=== PATIENT | male | born 1965 | race Two or more races ===

== ENCOUNTER 2020-03-10 07:05 | Inpatient (IN) | payer OTHER ==
[2020-03-10] VITALS (13 sets, daily range): BP systolic 113–154; BP diastolic 67–98
[~2020-03-10] VITALS: Ht 167.6 cm; Wt 111.6 kg
[~2020-03-10 07:05] MED LIST: ceFAZolin 1gm IVPB IVPB ONE; celeBREX 200mg Cap **SURGERY PATIENTS ONLY ORAL ONE; oxyCONTIN 20mg tab ORAL ONE
--- NOTE | 2020-03-10 07:41 | Pre-Procedure Note/Attestation ---
Pre-Procedure Note/Attestation Complete Prior to Procedure Planned Procedure: right Procedure Narrative: knee tka Indications for Procedure Pre-Operative Diagnosis: right knee arthritis Attestation I attest that I discussed the nature of the procedure; its benefits; risks and complications; and alternatives (and the risks and benefits of such alternatives), prior to the procedure, with the patient (or the patient's legal entry level marketing representative). I attest that, if there was a reasonable possibility of needing a blood rob sfusion, the patient (or the patient's legal entry level marketing representative) was given the [facility] standardized written summary, pursuant to the Estuardo Gloria Blood Safety Act ([place] Health and Safety Code # 1645, as amended). I attest that I re-evaluated the patient just prior to the surgery and that there has been no change in the patient's H&P, except as documented below: Simeon Ritter MD Mar 10, 2020 07:41
--- NOTE | 2020-03-10 07:42 | Operative Note - PDOC ---
Operative Note Operative Note Pre-op Diagnosis: right knee arthritis Procedure: see op report Post-op Diagnosis: same as pre-op plus Anesthesia: regional Specimen: none Complications: none Condition: stable Estimated Blood Loss: none Drains: none Implant(s) used?: Yes Simeon Ritter MD Mar 10, 2020 07:42
[2020-03-10] MEDS ORDERED: Morphine Sulfate 4mg/ml Inj (IV USE ONLY) IVP PRN (07:45)
[2020-03-10] MEDS ORDERED: Morphine Sulfate 2mg/ml Inj(IV/IM USE ONLY) IVP PRN ×2 (07:45)
[2020-03-10] MEDS ORDERED: oxyCODONE 5mg IR tab ORAL PRN (07:45)
[2020-03-10] MEDS ORDERED: Milk of Magnesia 30ml Ud ORAL PRN (07:45)
[2020-03-10] MEDS ORDERED: Ketorolac 30mg Inj ONE (08:32)
[2020-03-10] MEDS ORDERED: EPINEPHrine 1mg/1ml Amp ONE ×2 (08:32→08:53)
[2020-03-10] MEDS ORDERED: Kenalog-40 1ml Vial ONE (08:32)
[2020-03-10] MEDS ORDERED: Bacitracin 50000 Units Vial ONE (08:33)
[2020-03-10] MEDS ORDERED: Bupivacaine 0.25% Inj 30ml INJ ONE ×2 (08:33→10:56)
[2020-03-10] MEDS ORDERED: Acetaminophen (Non formulary) 100 ML IV ONE (08:45)
[2020-03-10] MEDS ORDERED: Midazolam 2mg/2ml Inj IVP PRN (08:45)
[2020-03-10] MEDS ORDERED: DiphenhydrAMINE 50mg/ml Inj IVP PRN (08:45)
[2020-03-10] MEDS ORDERED: LORazepam Inj 2mg/ml 1ml IV PRN (08:45)
[2020-03-10] MEDS ORDERED: Labetalol 5mg/ml 20ml vial IV PRN (08:45)
[2020-03-10] MEDS ORDERED: Hydromorphone 0.5mg/0.5ml inj IVP PRN (08:45)
[2020-03-10] MEDS ORDERED: Metoclopramide 10mg/2ml Inj IVP PRN (08:45)
[2020-03-10] MEDS ORDERED: Meperidine 25mg/1ml Inj (FOR RIGORS ONLY) IV PRN (08:45)
[2020-03-10] MEDS ORDERED: LR 1000ml 1,000 ML IVLG SCH (08:45)
[2020-03-10] MEDS ORDERED: HYDROcodone/Acetamin 7.5/325 tab ORAL PRN (08:45)
[2020-03-10] MEDS ORDERED: Atropine Sulfate 0.4mg/ml inj IVP PRN (08:45)
[2020-03-10] MEDS ORDERED: oxyCODONE HCL/Acetaminophen 5/325mg ORAL PRN (08:45)
[2020-03-10] MEDS ORDERED: fentaNYL 100 mcg/2 mL IV PRN (08:45)
[2020-03-10] MEDS ORDERED: HYDROcodone/Acetamin 5/325 tab ORAL PRN (08:45)
[2020-03-10] MEDS ORDERED: Lidocaine 1% Plain 30 ml INJ ONE ×2 (08:52→10:49)
[2020-03-10] MEDS ORDERED: Lidocaine 1% MPF 10mg/ml 5ml ONE (08:52)
--- NOTE | 2020-03-10 08:52 | Anethesia Preoperative Eval ---
Anesthesia Pre-op PMH/ROS General Date of Evaluation: Mar 10, 2020 Time of Evaluation: 08:47 Anesthesiologist: Lizzy ASA Score: ASA 3 Mallampati Score Class I : Soft palate, uvula, fauces, pillars visible Class II: Soft palate, uvula, fauces visible Class III: Soft palate, base of uvula visible Class IV: Only hard plate visible Mallampati Classification: Class II Surgeon: Stone Diagnosis: R Knee Pain Surgical Procedure: R Knee Total Arthroplasty Anesthesia History: none Family History: no anesthesia problems Allergies: Coded Allergies: No Known Allergies (Unverified , 03/08/20) Medications: see eMAR Patient NPO?: Yes Past Medical History Cardiovascular: Reports: HTN Gastrointestinal/Genitourinary: Reports: GERD Neurologic/Psychiatric: Reports: depression/anxiety Musculoskeletal/Integumentary: Reports: OA Other: obesity - Morbid BMI 41 Anesthesia Pre-op Phys. Exam Physician Exam Last Vital Signs Date Time Temp Pulse Resp B/P (MAP) Pulse Ox O2 Delivery O2 Flow Rate FiO2 03/10/20 07:46 98.4 50 18 148/85 (106) 100 Constitutional: NAD Neurologic: CN 2-12 intact Cardiovascular: RRR Respiratory: CTA Gastrointestinal: S/NT/ND Airway Exam Mallampati Score: Class II MO: full ROM: limited Teeth: missing, intact Anesthesia Pre-op A/P Risk Assessment & Plan Assessment: ASA 3 Plan: GA, Adductor Block Status Change Before Surgery: No Pre-Antibiotics Dru Grams Ancef IV Given Within 1 Hr of Incision: Yes Time Given: 09:21 Tristan Ball MD Mar 10, 2020 08:52
[2020-03-10] MEDS ORDERED: fentaNYL 100 mcg/2 mL IV ONE ×2 (08:53→10:15)
[2020-03-10] MEDS ORDERED: Ropivacaine 5mg/ml Vial 20ml INJ ONE (08:53)
[2020-03-10] MEDS ORDERED: Duramorph PF 5mg/10ml amp ONE (08:54)
--- NOTE | 2020-03-10 09:39 | Immediate Post-Op Evaluation ---
Immediate Post-Op Evalulation Immediate Post-Op Evalulation Procedure: R Knee Total Arthroplasty Date of Evaluation: Mar 10, 2020 Time of Evaluation: 12:05 IV Fluids: 1200 LR Blood Products: 0 Estimated Blood Loss: 75 Urinary Output: 275 Blood Pressure Systolic: 154 Blood Pressure Diastolic: 97 Pulse Rate: 89 Respiratory Rate: 16 O2 Sat by Pulse Oximetry: 100 Temperature (Fahrenheit): 99 Pain Score (1-10): 2 Nausea: No Vomiting: No Complications 0 Patient Status: awake, reacts, patent, none Hydration Status: adequate Dru Grams Ancef IV Given Within 1 Hr of Incision: Yes Time Given: 09:21 Tristan Ball MD Mar 10, 2020 09:39
[2020-03-10] MEDS ORDERED: Tranexamic Acid 100 ML IVPB ONE (10:15)
--- NOTE | 2020-03-10 10:56 | NUR ---
CASE MANAGEMENT: INITIAL REVIEW 03/10/2020 55 YO M PRESENTED TO HOSPITAL CC: right knee arthritis PMHx: OA. ANXIETY. SI:right knee arthritis VS: T 98.4 HR 50 RR 18 B/P 148/85 SATS 100% ON RA LABS: NONE TODAY IS:OR MEDS PATIENT ADMITTED TO SURGERY 03/10/2020 @ 0741 DCP: HOME PLAN OF CARE: Procedure: R Knee Total Arthroplasty
[2020-03-10] MEDS ORDERED: Tranexamic Acid 1,000 MG in NS 55 ML IVPB SCH (11:30)
[2020-03-10] MEDS ORDERED: LR 1000ml ONE (12:00)
[2020-03-10] MEDS ORDERED: Succinylcholine 20mg/ml 10ml vial ONE (12:00)
--- NOTE | 2020-03-10 13:35 | 48 Hour Post Anesthesia Eval ---
Post Anesthesia Evaluation Procedure: R Knee Total Arthroplasty Date of Evaluation: Mar 10, 2020 Time of Evaluation: 13:33 Blood Pressure Systolic: 138 0: 82 Pulse Rate: 80 Respiratory Rate: 19 Temperature (Fahrenheit): 98.8 O2 Sat by Pulse Oximetry: 99 Airway: patent Nausea: No Vomiting: No Pain Intensity: 2 Hydration Status: adequate Cardiopulmonary Status: Stable Mental Status/LOC: patient returned to baseline Follow-up Care/Observations: 0 Post-Anesthesia Complications: 0 Follow-up care needed: N/A Tristan Ball MD Mar 10, 2020 13:35
--- NOTE | 2020-03-10 14:10 | NUR ---
NURSE NOTES: Received patient from PACU. Patient is awake and denies pain. He verbalizes how to use the call light. Surgical site is dry and intact. No bleeding noted. SCD on left leg. Vitals are stable. Breathing is unlabored. Patient is on NC 3L. IV 18g on the left hand. Sam catheter noted. Yellow urine drainage noted. Patient is on the bed. Physical therapist is made aware to get patient out of bed. RN boiler house supervisor made aware of villa.
--- NOTE | 2020-03-10 15:23 | NUR ---
P.T Note: P.T evaluation completed and tx initiated POD #0. Pt is alert, O x 4, pleasant and cooperative. Pt has limited participation in functional mobilities due to R knee pain 8/10 with movement, nausea and diaphoresis. Pt currently require MIN A X 1 for bed mobilities , MOD A X 1 for transfers. Pt was only able to ambulate with FWW not more than 6 tiny steps on a slow labored pace due due to above reasons. Will continue with POC with progression of activities as tolerated. Pt will benefit to SNF for further rehab intervention VS home P.T depending on daily progress. CPM was set up and tolerating 0-60 deg. CPM was endorsed to nursing at the end of P.T shift.
[2020-03-10] MEDS: D5 1/2NS w/KCl 20mEq 1,000 ML IV SCH (15:57)
[2020-03-10] MEDS: ceFAZolin 2gm/50ml Premix 50 ML IV SCH (15:58)
--- NOTE | 2020-03-10 17:03 | NUR ---
AGRICULTURAL CHEMICALS INSPECTOR NOTE SW met w/ pt and discussed social sciences professor concern. Pt is monolingual Welsh. senior product designer Gladys #[id number] assisted w/ interpretation. Pt presents as A&O 4x. Pt has been staying at his friend's place at [address] [place] [address]. Pt shares his friend financially supported him until now. Pt has been disabled for three years. Pt receives no income at this time. PT denies having mental illness, substance abuse/tobacco use. Pt reports he will not be able to return his friend's home upon DC. may need placement. SW will continue to F/U. Emergency contact: Elgin Feliciano (nephew) [phone].
[2020-03-10] MEDS: Docusate 100mg cap ORAL SCH (17:58)
[2020-03-10] MEDS: Aspirin Baby 81mg ORAL SCH (17:58)
--- NOTE | 2020-03-10 18:05 | Diagnostic Imaging Report ---
Indications: Postoperative Technique: Two views of the right knee Comparison: None Findings: Two postoperative views of the right knee demonstrate total knee arthroplasty, good anatomic alignment of the prosthesis. . There is postsurgical soft tissue air. Impression: Postoperative right knee, no unusual features.
--- NOTE | 2020-03-10 18:30 | Operative Note - Dictated ---
DATE OF OPERATION: 03/10/2020 PREOPERATIVE DIAGNOSIS: Right knee arthritis, aggravated by fall. POSTOPERATIVE DIAGNOSIS: Right knee arthritis, aggravated by fall. PROCEDURE: Right total knee arthroplasty, complicated. SURGEON: Simeon Ritter MD ANESTHESIA: Spinal with adductor block. INDICATION FOR PROCEDURE: The patient is a pleasant 55-year-old gentleman who had a substantial fall onto his right knee. He had aggravation of underlying arthritis. After failing conservative treatment, he elected to undergo right total knee arthroplasty. Risks, limitations, expectations, and complications of the procedure were discussed in detail. All questions were addressed including instability, infection, nerve or vessel damage, continued pain, risk of anesthesia, medical complications, DVT, PE, and mortality risk. All questions were addressed. DESCRIPTION OF PROCEDURE: After informed consent was obtained, the patient was brought into the operating room. The patient was placed under spinal and femoral adductor. Right leg was prepped and draped in a sterile manner. Time-out was performed. Medial parapatellar arthrotomy was performed. Distal femur was well visualized. The distal femoral cutting guide was then placed and distal femur was resected. A posteroanterior sizing guide was placed and it measured approximately size 5 femur. Size 5 femur cutting block was placed with care to make sure there was perpendicular mechanical axis of the femur. Anterior, posterior, chamfer cuts were then made. At this point, the proximal tibia was well visualized. The proximal tibia was then resected. Medial and lateral menisci were removed. At this point, a trial component with a size 5 femur, size 5 tibial tray with a 9 mm insert was placed. Knee came out to full extension, good stability with full extension on varus and valgus stressing. Mild opening medial and lateral, but no gross instability, no flexion instability, stable at 90 degrees. At this point, the tibia was externally rotatored and keel punch was prepared. Patella was everted and measured 26 mm. Freehand resection was performed. A 33 mm patellar component was selected and recalibrated to 26 mm. At this point, the cement was prepared. Implants were impacted into place and excess cement was removed. The knee was again taken through range of motion, stable to full extension, less than 5 mm opening with flexion, stable at 90 degrees. Given that he had a 15-degree flexion contracture with significant posteromedial bone loss on the medial side, it was felt that this was a reasonable soft-tissue balancing. The synovectomy of the medial, lateral, and patellofemoral compartments was completed. BLOOD LOSS: 25 mL. COMPLICATIONS: None. SPECIMENS: None. IMPLANTS: Include size 5 femoral component, size 5 tibial baseplate, 9 mm tibial insert, and 33 mm patellar component. Simeon Ritter M.D. DR: RITA JOB#: [id number] CC: JEREMIAH
--- NOTE | 2020-03-10 19:23 | NUR ---
NURSE NOTES: received pt and report from ANNEL Davies. pt alert and oriented x 4 with no s/s of acute distress and no pain at the moment. IV is clean dry and intact and running fluid as ordered. Sma noted and draining. surgical dressing clean dry and intact. Plan of care discussed.
--- NOTE | 2020-03-10 19:26 | NUR ---
NURSE HAND-OFF: Important Events on Shift: S-P Right knee arthroplasty Patient Status: [stable] Diet: [Regular] Pending Orders: [N/A] Pending Results/Labs: N/A Pending MD notification: No Latest Vital Signs: Temperature 97.9 , Pulse 62 , B/P 121 /76 , Respiratory Rate 16 , O2 SAT 94 , Room Air, O2 Flow Rate 3.0 . Vital Sign Comment: Stable Latest Draper Fall Score: 35 Fall Risk: Medium Risk Safety Measures: Call light Within Reach, Bed Alarm , Side Rails Side Rails x1, Bed position Low and Locked. Fall Precautions: Patient Fall Education Report given to Ilia UP.
[2020-03-10] MEDS: oxyCONTIN 20mg tab ORAL SCH (21:06)
[2020-03-10] MEDS: Acetaminophen 500mg (ES) tab ORAL SCH (21:07)
[2020-03-11] VITALS: BP 114/62
[2020-03-11] MEDS: ceFAZolin 2gm/50ml Premix 50 ML IV SCH (00:09)
[2020-03-11 04:00] VITALS: BP 114/61
--- NOTE | 2020-03-11 04:00 | NUR ---
NURSE NOTES: pt has been stable all night. pt has not complained of any pain and has not shown any s/s of acute distress. pt has been sleeping throughout the night, vitals have been stable. he is easily arousable when asleep and is alert and oriented x4 when awake.
[2020-03-11] MEDS: D5 1/2NS w/KCl 20mEq 1,000 ML IV SCH (04:28)
[2020-03-11] MEDS: Acetaminophen 500mg (ES) tab ORAL SCH ×3 (05:33→21:55)
--- NOTE | 2020-03-11 07:10 | NUR ---
NURSE NOTES: Handoff received from Ilia RN. Patient is awake and alert, eating breakfast, breathing even and unlabored on room air. No complaints of pain at this time. Patient encouraged to increase fluid intake. Left hand IV is intact and saline locked. Sam catheter patent and draining to gravity, orders to DC this AM. Bed is low and locked, side rails up x2, call light is within reach.
--- NOTE | 2020-03-11 07:33 | NUR ---
NURSE HAND-OFF: Important Events on Shift:pain management Patient Status: stable Diet: regular Pending Orders: na Pending Results/Labs:na Pending MD notification:na Latest Vital Signs: Temperature 98.6 , Pulse 56 , B/P 114 /61 , Respiratory Rate 14 , O2 SAT 98 , Room Air, O2 Flow Rate 3.0 . Vital Sign Comment: stable through the shift Latest Draper Fall Score: 35 Fall Risk: Medium Risk Safety Measures: Call light Within Reach, Bed Alarm Zone 1, Side Rails Side Rails x2, Bed position Low and Locked. Fall Precautions: Patient Fall Education Report given to ANNEL Levi.
[2020-03-11 08:00] VITALS: BP 124/78
[2020-03-11] MEDS: oxyCONTIN 20mg tab ORAL SCH ×2 (08:23→21:18)
[2020-03-11] MEDS: Docusate 100mg cap ORAL SCH ×3 (08:24→18:12)
[2020-03-11] MEDS: Aspirin Baby 81mg ORAL SCH ×2 (08:24→18:12)
[2020-03-11] MEDS: celeBREX 200mg Cap **SURGERY PATIENTS ONLY ORAL SCH (08:25)
[2020-03-11 11:46] VITALS: BP 118/65
--- NOTE | 2020-03-11 15:25 | NUR ---
NURSE NOTES:DR. KELLY CALLED IN AND GAVE DISCHARGE ORDER FOR TOMORROW,. STATED THAT HIS ATTY WILL MAKE ARRANGEMENT FOR HOTEL PLACEMENT.PRIMARY RN.AWARE.
--- NOTE | 2020-03-11 15:34 | NUR ---
NURSE NOTES:WILFREDO([employer] LAW OFFICE,PHONE# )CALLED IN AND STATED THAT PT. WILL BE NOISE TESTER TOMORROW MORNING,BY ZACH(EMPLOYEE . LAW OFFICE)PHONE# .PER CONVERSATION, PLACEMENT FOR PT.HAS BEEN ARRANGED.PRIMARY RN.INFORMED
[2020-03-11 16:00] VITALS: BP 133/60
--- NOTE | 2020-03-11 19:25 | NUR ---
NURSE HAND-OFF: Important Events on Shift:[PT, CPM, DC felix ] Patient Status: stable Diet: regular Pending Orders: DC tomorrow AM Pending Results/Labs: Pending MD notification: Latest Vital Signs: Temperature 98.7 , Pulse 64 , B/P 133 /60 , Respiratory Rate 17 , O2 SAT 97 , Room Air, O2 Flow Rate 3.0 . Vital Sign Comment: stable Latest Draper Fall Score: 35 Fall Risk: Medium Risk Safety Measures: Call light Within Reach, Bed Alarm Zone 1, Side Rails Side Rails x2, Bed position Low and Locked. Fall Precautions: Patient Fall Education Report given to Kaelyn UP.
--- NOTE | 2020-03-11 19:26 | NUR ---
NURSE NOTES: Received report from ANNEL Levi. Rounds done. Patient alert and oriented, communicating well in [place] with nurse. No distress noted. R knee dressing with virgie wrap, intact and dry. Encouraged to call as needed to get OOB, walker at bedside, per report patient is unsteady and needs assistance. Encouraged to move in bed, and change positions. Incentive spirometer at bedside, encouraged use while awake. VSS. Off CPM, SCD on LLE. Placed towel roll under ankle, and icepack on R knee. Bed in low position, locked, side rails up x2, call light within reach. Will continue to monitor.
[2020-03-11 20:00] VITALS: BP 124/63
--- NOTE | 2020-03-11 22:00 | NUR ---
NURSE NOTES: Spoke with Dr Ritter regarding patient's discharge concerns and needs for home help, physical therapy, walker. No prescription in chart. Physician ordered outpatient therapy and walker upon discharge. Patient states he doesn't have a pharmacy. Pharmacy across the street closed until Friday. I asked patient to request pharmacy near [facility] when he speaks with imaging assistant in the morning, as he doesn't know where he will be staying yet. Patient verbalized understanding. Will be calling Dr Ritter with pharmacy info when obtained by patient.
[2020-03-12 04:00] VITALS: BP 101/60
[2020-03-12] MEDS: Acetaminophen 500mg (ES) tab ORAL SCH (06:13)
--- NOTE | 2020-03-12 06:56 | NUR ---
NURSE HAND-OFF: Important Events on Shift: rested in bed during night, needs to ambulate during day. Spoke with Dr Ritter regarding DC meds, patient to obtain pharmacy close to [facility] where he will be staying upon discharge and provide number to nurse/to Dr Ritter. Patient Status: stable, Diet: reg Pending Orders: [] Pending Results/Labs:[] Pending MD notification:[] Latest Vital Signs: Temperature 98.1 , Pulse 58 , B/P 101 /60 , Respiratory Rate 18 , O2 SAT 97 , Room Air, O2 Flow Rate 3.0 . Vital Sign Comment: [] Latest Draper Fall Score: 35 Fall Risk: Medium Risk Safety Measures: Call light Within Reach, Bed Alarm Zone 1, Side Rails Side Rails x2, Bed position Low and Locked. Fall Precautions: Patient Fall Education Report given to [].
--- NOTE | 2020-03-12 07:09 | NUR ---
HAND-OFF: Report given to ANNEL Levi. Dressing change due today. Rounds done
--- NOTE | 2020-03-12 07:10 | NUR ---
NURSE NOTES: Handoff received from Kaelyn UP. Patient is awake and alert, no signs of distress noted, breathing even and unlabored on room air. No reports of pain at this time. Right knee has ice pack and rolled towel under ankle. Left hand IV is intact and saline locked. Patient updated on plan of care and discharge planned for today. Bed is low and locked, side rails up x2, call light is within reach.
[2020-03-12 08:00] VITALS: BP 127/70
[2020-03-12] MEDS: Docusate 100mg cap ORAL SCH (08:56)
[2020-03-12] MEDS: celeBREX 200mg Cap **SURGERY PATIENTS ONLY ORAL SCH (08:57)
[2020-03-12] MEDS: oxyCONTIN 20mg tab ORAL SCH (08:57)
[2020-03-12] MEDS: Aspirin Baby 81mg ORAL SCH (08:58)
--- NOTE | 2020-03-12 09:20 | NUR ---
NURSE NOTES: Spoke with Dr. Ritter regarding patient's discharge. According to MD the prescriptions were phoned into the [facility] pharmacy in [place] near patient's hotel. also told RN to remind patient to keep leg elevated, iced, and to do the PT recommended exercises. According to MD, the patient's shift supervisor film processing will coordinate with MD to set up outpatient physical therapy.
[2020-03-12] MEDS ORDERED: Sterile Water Irrig 1000ml IRRIG ONE (12:59)
[2020-03-12] MEDS ORDERED: NS Irrig 1000ml ONE (12:59)
--- NOTE | 2020-03-12 13:00 | NUR ---
NURSE NOTES: Patient safely discharged from to hotel via private vehicle. Patient belongings verified and belongings list signed. IV and ID wristband removed. Patient information packet and DME provided along with DME education and physical therapy exercise pamphlet. Patient provided with pharmacy information, Md called in medications to pharmacy. Per MD, law firm and MD will coordinate to set up outpatient physical therapy. Pharmacy is [facility] in [place]. Hotel is [facility] in [place].
--- NOTE | 2020-03-13 14:27 | Discharge Summary ---
Discharge Summary Hospital Course Date of Admission Mar 10, 2020 at 07:05 Date of Discharge Mar 12, 2020 at 13:00 Admitting Diagnosis Right knee osteoarthritis Reason for Hospitalization: Elective surgery RADHA Feliciano is a 55 year old male who was admitted on Mar 10, 2020 at 07:05 for Right Knee Osteoarthritis. Patient was admitted for elective surgery. Procedures s/p 03/10/[address] Ritter Right total knee arthroplasty, complicated. Hospital Course status post surgery course of recovery uneventful initially IV fluids s/p perioperative antibiotic neurovascular status closely monitored, remained stable incision dressed, clean, dry and intact pain management was addressed pain was controlled remained hemodynamically stable ambulated with PT fall precautions maintained; safe for ambulation DVT prophylaxis provided use of incentive spirometry was encouraged while in the bed tolerated diet , IV fluids discontinued GI prophylaxis provided antiemetics were on board as needed voided freely bowel regimen instituted patient was stable for discharge patient information packet and DMV provided along with the DMV education and physical therapy exercise pamphlet outpatient physical therapy will be set up discharge instructions provided follow up with surgeon in the office as advised FINAL DIAGNOSIS Right knee arthritis, aggravated by fall. s/p Right total knee arthroplasty, complicated. Discharge Medications Medication Profile: No Active Prescriptions or Reported Meds Discharge Condition Upon Discharge: stable Discharge Vital Signs Last Vital Signs Date Time Temp Pulse Resp B/P (MAP) Pulse Ox O2 Delivery O2 Flow Rate FiO2 03/12/20 09:27 97.8 03/12/20 09:00 Room Air 03/12/20 08:00 66 17 127/70 (89) 97 03/10/20 13:15 3.0 Discharge Disposition Patient was discharged home Discharge Instructions Discharge Instructions Special Instructions I have been assigned to complete a D/C Summary on this account. I was not involved in the patient management Roslyn Castillo NP Mar 13, 2020 14:27
--- NOTE | 2020-03-13 16:00 | Progress Note ---
DATE: 03/12/2020 SUBJECTIVE: The patient is doing well with physical therapy. He is ambulating comfortably with a walker. PHYSICAL EXAMINATION: The patient is resting comfortably on exam bed. Vital signs, afebrile . Right knee exam . Range of motion is -10 to 90. ASSESSMENT: Status post right total knee arthroplasty. DISCUSSION: At this point, she is going to be discharged today post total knee rehab protocol was discussed with the patient. Signs and symptoms of DVT were discussed with the patient. He was instructed on wound care. He is going to be maintained on aspirin 81 mg p.o. daily for DVT prophylaxis. He is going to follow up this week as outpatient and begin outpatient physical therapy. Simeon Ritter M.D. DR: KAREEM JOB#: [id number] CC:
--- NOTE | 2020-03-13 21:29 | Discharge Summary ---
DATE OF ADMISSION: 03/10/2020 DATE OF DISCHARGE: 03/12/2020 HOSPITAL COURSE: The patient underwent uncomplicated right total knee arthroplasty, did well. He is going to be discharged to home. Rehab protocol discussed with the patient. He is going to continue with the home exercise program until we can start him in some outpatient physical therapy. He is going to be maintained on aspirin for DVT prophylaxis. Signs and symptoms of DVT were discussed with the patient including alternative treatment to aspirin treatment. He was instructed on local wound care. Simeon Ritter M.D. DR: Guilherme JOB#: [id number] CC:
== END 2020-03-12 13:00 | disposition home or self-care (01) | DRG 470 ==
LOC: SDSOVERFLO 07:05 → EDSTATUS 11:15 → 3E 13:42
PROC: 0SRC0J9 Replacement of Right Knee Joint with Synthetic Substitute, Cemented, Open Approach (ICD-10-PCS; principal; 2020-03-10 09:15)
DX: M17.11 Unilateral primary osteoarthritis, right knee (principal); Z91.81 History of falling
CPT/HCPCS: 36415; 86850; 86900; 86901; 87081; 94003; 94150; J2405; J2795; U0002

== ENCOUNTER 2020-03-21 12:11 | Emergency (ER) | payer SELFPAY ==
[~2020-03-21] VITALS: Ht 172.7 cm; Wt 86.2 kg
[2020-03-21 12:45] VITALS: BP 131/75
--- NOTE | 2020-03-21 12:45 | NUR ---
ED Nurse Note: pt presents to ED with a walker, states that he had a knee surgery at [facility] last . since then, his pain has not improved and he has ecchymosis to R thigh. R knee dressing appears to be clean dry and intact. pt denies any bleeding from site. the R knee appears to be bandaged.
[2020-03-21] MEDS ORDERED: Ketorolac 30mg Inj IM ONE (13:15)
[2020-03-21 15:04] LABS: APPEARANCE,URINE CLEAR; BILIRUBIN, URINE NEGATIVE (NEGATIVE); GLUCOSE, URINE (UA) NEGATIVE (NEGATIVE); KETONES,URINE NEGATIVE (NEGATIVE); LEUKOCYTE ESTERASE ,URINE NEGATIVE (NEGATIVE); NITRITE,URINE NEGATIVE (NEGATIVE); PH,URINE 7 (4.5-8.0); PROTEIN,URINE NEGATIVE (NEGATIVE); UROBILINOGEN,URINE 4 MG/DL (0.0-1.0)
[2020-03-21 15:07] LABS: BASOPHILS % (AUTO) 1.1 % (0.0-2.0); EOSINOPHILS % (AUTO) 1.3 % (0.0-3.0); HEMATOCRIT 38.8 % (42.0-52.0); HEMOGLOBIN 13.7 G/DL (14.2-18.0); LYMPHOCYTES % (AUTO) 15.1 % (20.0-45.0); MEAN CORPUSCULAR VOLUME 94 FL (80-99); MONOCYTES % (AUTO) 8.8 % (1.0-10.0); NEUTROPHILS % (AUTO) 73.7 % (45.0-75.0); PLATELET COUNT 182 K/UL (150-450); RED BLOOD COUNT 4.12 M/UL (4.70-6.10); RED CELL DISTRIBUTION WIDTH 12.5 % (11.6-14.8); WHITE BLOOD COUNT 6.2 K/UL (4.8-10.8)
[2020-03-21 15:10] LABS: COLOR,URINE YELLOW
[2020-03-21] MEDS ORDERED: Omnipaque-300 100ml vial INJ PRN (16:00)
[2020-03-21 16:10] LABS: ANION GAP 8 mmol/L (5-15); BLOOD UREA NITROGEN 17 mg/dL (7-18); CALCIUM 8.3 MG/DL (8.5-10.1); CARBON DIOXIDE 26 MMOL/L (21-32); CHLORIDE 106 MMOL/L (98-107); SODIUM 139 MMOL/L (136-145)
[2020-03-21 16:14] LABS: ALANINE AMINOTRANSFERASE 36 U/L (12-78); ALBUMIN 3.2 G/DL (3.4-5.0); ALBUMIN/GLOBULIN RATIO 0.9 (1.0-2.7); ALKALINE PHOSPHATASE 135 U/L (46-116); ASPARTATE AMINO TRANSFERASE 30 U/L (15-37); BILIRUBIN,TOTAL 0.6 MG/DL (0.2-1.0); CREATINE KINASE 62 U/L (26-308)
[2020-03-21 16:17] VITALS: BP 134/77
--- NOTE | 2020-03-21 17:19 | Emergency Room Report ---
History of Present Illness General Chief Complaint: Pain Source: Patient Present Illness [facility] This patient underwent right knee replacement surgery on March 10. The surgery was done by Dr. Simeon Ritter. The patient complains of ongoing pain since his surgery, especially in the back of his right thigh. He has bruising in this area. He denies fever or chills. He states that he only has a little bit of pain in the actual joint of the right knee. Allergies: Coded Allergies: No Known Allergies (Unverified , 03/08/20) COVID-19 Screening Contact w/high risk pt: No Experienced COVID-19 symptoms?: No COVID-19 Testing performed [employer]: No Patient History Past Medical History: see triage record, GERD Social History: Denies: smoking, alcohol use, drug use Reviewed Nursing Documentation: PMH: Agreed; PSxH: Agreed Nursing Documentation-PMH Hx Cardiac Problems: No - R LEG SURGERY (03/10/20) Hx Cancer: No Hx Gastrointestinal Problems: Yes Hx Neurological Problems: No Review of Systems All Other Systems: negative except mentioned in HPI Physical Exam Vital Signs Date Time Temp Pulse Resp B/P (MAP) Pulse Ox O2 Delivery O2 Flow Rate FiO2 03/21/20 12:38 98.6 79 19 131/75 (93) 95 Room Air Sp02 EP Interpretation: reviewed, normal General Appearance: no apparent distress, alert, GCS 15, non-toxic Head: normocephalic, atraumatic Eyes: bilateral eye normal inspection ENT: hearing grossly normal, normal pharynx, no angioedema, normal voice Neck: normal inspection Respiratory: no respiratory distress, no retraction, no accessory muscle use, speaking full sentences Cardiovascular #1: regular rate, rhythm Gastrointestinal: non tender, soft, non-distended, no guarding, no rebound Rectal: deferred Musculoskeletal: back normal, normal range of motion, swelling - R. knee with swelling, surgical incision site healing, no dehiscence. Sutures in place. R. posterior thigh with moderate swelling and ecchymosis. Compartments soft. Neurologic: alert, motor strength/tone normal, oriented x3, sensory intact, responsive, speech normal Psychiatric: judgement/insight normal, memory normal, mood/affect normal, no suicidal/homicidal ideation Skin: other - See above in [facility] Medical Decision Making Diagnostic Impression: Primary Impression: Extensive postoperative bruising Additional Impression: Postoperative edema ER Course The patient had presented with postoperative thigh pain, knee pain and ecchymoses. To fully evaluate the right lower extremity, and venous ultrasound and arterial ultrasound was obtained to assess for DVT or arterial injury. These were unremarkable. Patient also underwent CT to further assess for any development of abscess. The CT did note some gas bubbles within the right knee joint. This is likely secondary to the recent instrumentation and arthroplasty with knee replacement that was done on March 10. At this time, I do not suspect septic joint. Further, the skin findings seem more consistent with ecchymoses rather than cellulitis. There was no evidence of abscess seen on CT. Further, the patient's laboratory work-up was benign. The case was discussed with the patient's orthopedic surgeon who performed the surgery Dr. Ritter. Dr. Ritter states that the postoperative findings are normal for this patient's surgery and no further investigation is indicated from the Emergency Department. Dr. Ritter will see the patient in his office tomorrow. At this time, I do not identify an emergency medical condition. The patient was instructed to follow- up closely with Dr. Ritter tomorrow. The patient does have pain medications that was given to him by Dr. Ritter. The patient indicated understanding intention to do so. Laboratory Tests Test 03/21/20 14:46 03/21/20 14:48 03/21/20 15:01 Urine Color Yellow Urine Appearance Clear Urine pH 7 (4.5-8.0) Urine Specific [place] 1.010 (1.005-1.035) Urine Protein Negative (NEGATIVE) Urine Glucose (UA) Negative (NEGATIVE) Urine Ketones Negative (NEGATIVE) Urine Blood 2+ (NEGATIVE) H Urine Nitrite Negative (NEGATIVE) Urine Bilirubin Negative (NEGATIVE) Urine Urobilinogen 4 MG/DL (0.0-1.0) H Urine Leukocyte Esterase Negative (NEGATIVE) Urine RBC 5-10 /HPF (0 - 0) H Urine WBC 0 /HPF (0 - 0) Urine Squamous Epithelial Cells Occasional /LPF Urine Bacteria Few /HPF (NONE) White Blood Count 6.2 K/UL (4.8-10.8) Red Blood Count 4.12 M/UL (4.70-6.10) L Hemoglobin 13.7 G/DL (14.2-18.0) L Hematocrit 38.8 % (42.0-52.0) L Mean Corpuscular Volume 94 FL (80-99) Mean Corpuscular Hemoglobin 33.4 PG (27.0-31.0) H Mean Corpuscular Hemoglobin Concent 35.4 G/DL (32.0-36.0) Red Cell Distribution Width 12.5 % (11.6-14.8) Platelet Count 182 K/UL (150-450) Mean Platelet Volume 6.5 FL (6.5-10.1) Neutrophils (%) (Auto) 73.7 % (45.0-75.0) Lymphocytes (%) (Auto) 15.1 % (20.0-45.0) L Monocytes (%) (Auto) 8.8 % (1.0-10.0) Eosinophils (%) (Auto) 1.3 % (0.0-3.0) Basophils (%) (Auto) 1.1 % (0.0-2.0) Prothrombin Time 11.3 SEC (9.30-11.50) Prothrombin Time INR 1.0 (0.9-1.1) Activated Partial Thromboplast Time 28 SEC (23-33) Sodium Level 139 MMOL/L (136-145) Potassium Level 4.0 MMOL/L (3.5-5.1) Chloride Level 106 MMOL/L (98-107) Carbon Dioxide Level 26 MMOL/L (21-32) Anion Gap 8 mmol/L (5-15) Blood Urea Nitrogen 17 mg/dL (7-18) Creatinine 1.0 MG/DL (0.55-1.30) Estimated Glomerular Filtration Rate > 60 mL/min (>60) Glucose Level 96 MG/DL (74-106) Calcium Level 8.3 MG/DL (8.5-10.1) L Total Bilirubin 0.6 MG/DL (0.2-1.0) Aspartate Amino Transferase (AST) 30 U/L (15-37) Alanine Aminotransferase (ALT) 36 U/L (12-78) Alkaline Phosphatase 135 U/L (46-116) H Total Creatine Kinase 62 U/L (26-308) Troponin I 0.005 ng/mL (0.000-0.056) Total Protein 6.7 G/DL (6.4-8.2) Albumin 3.2 G/DL (3.4-5.0) L Globulin 3.5 g/dL Albumin/Globulin Ratio 0.9 (1.0-2.7) L Lactic Acid Level 1.10 mmol/L (0.4-2.0) CT/MRI/US Diagnostic Results CT/MRI/US Diagnostic Results : Imaging Test Ordered: RLE Venous US, RLE arterial doppler Impression RLE venous US: Negative for DVT. RLE arterial doppler: Normal arterial evaluation CT RLE: No abscess. See official reports electronic medical record. Last Vital Signs Date Time Temp Pulse Resp B/P (MAP) Pulse Ox O2 Delivery O2 Flow Rate FiO2 03/21/20 16:17 98.6 88 20 134/77 97 Room Air Status: improved Disposition: HOME, SELF-CARE Condition: Improved Scripts No Active Prescriptions or Reported Meds Referrals: NOT CHOSEN IPA/,REFERRING (PCP) Ayde Cuevas DO Mar 21, 2020 17:19
--- NOTE | 2020-03-21 17:42 | Diagnostic Imaging Report ---
EXAM: CT Right Lower Extremity Without Intravenous Contrast CLINICAL HISTORY: PAIN TECHNIQUE: Axial computed tomography images of the right lower extremity without intravenous contrast. CTDI is 16.9 mGy and DLP is 1357.1 mGy-cm. One or more of the following dose reduction techniques were used: automated exposure control, adjustment of the mA and/or kV according to patient size, use of iterative reconstruction technique. COMPARISON: 03/10/2020. 03/21/2020. FINDINGS: Bones/joints: Visualized right iliac bone is unremarkable. Right hip joint is intact. Evaluation of the right femur is unremarkable. Total right knee prosthesis is noted in place. Moderate right knee joint effusion is noted. Evaluation of the proximal tibia and fibula are within normal limits. Mid fibula and tibia are unremarkable. The right superior and inferior pubic rami are unremarkable. No acute fracture. No dislocation. Soft tissues: The muscle bundles of the right thigh are grossly unremarkable. There is abnormal are stranding and haziness within the subcutaneous tissues about the right thigh, most notably posterior laterally. Cellulitis cannot be excluded and clinical correlation is advised. Best seen on are series 16 image 92, subcutaneous gas bubbles are noted at the distal anterior right thigh as well as within the joint effusion. Cellulitis and septic joint cannot be excluded and clinical correlation is advised therefore. Vasculature: Atherosclerotic disease. Good flow is demonstrated within the visualized vasculature. Other findings: Anatomic alignment is within normal limits. Similarly, abnormal stranding and haziness is noted anterior laterally about the proximal calf. Again cellulitis should be considered. IMPRESSION: 1. Moderate to large right knee joint effusion is noted with some gas bubbles within it. Septic joint cannot be excluded and clinical correlation is advised. 2. Subcutaneous haziness about the thigh and the proximal calf worrisome for cellulitis. Clinical correlation is necessary. 3. If there is concern for early osteomyelitis, magnetic resonance imaging should be performed. 4. Good flow is demonstrated within the visualized vasculature. 5. Atherosclerotic disease.
[2020-03-21 18:10] VITALS: BP 134/77
--- NOTE | 2020-03-21 18:10 | NUR ---
ER DISCHARGE NOTE: Patient is cleared to be discharged per ERMD, pt is aox4, on room air, with stable vital signs. pt was given dc and prescription instructions, pt was able to verbalize understanding, pt id band and iv site removed without complications. pt is able to ambulate with steady gait. pt took all belongings.
--- NOTE | 2020-03-22 15:24 | Diagnostic Imaging Report ---
Indication: Right Leg pain and swelling Technique: Grayscale and duplex Doppler imaging of the veins in the right lower extremity performed in real time utilizing compression and augmentation. Comparison: None Findings: Duplex Doppler interrogation of the veins in right lower extremity is performed from the common femoral vein to the popliteal vein. Normal venous compressibility demonstrated throughout. No thrombus identified. Waveform analysis shows good respiratory phasicity and augmentation. IMPRESSION: No evidence of deep venous thrombosis involving the right lower extremity.
--- NOTE | 2020-03-22 15:29 | Cardiology Report ---
APPROVED REPORT EKG Measurement Heart [id number] <Conclusion> Sinus bradycardia Otherwise normal ECG
--- NOTE | 2020-03-22 16:50 | Diagnostic Imaging Report ---
Indication: Chest pain Technique: XRAY Chest 1v Comparison: None Findings: This is rotated to the right. Heart appears borderline enlarged. Mediastinal contours are sharp. There is no focal airspace consolidation, pleural effusion or pneumothorax. There are degenerative changes in the spine. No acute osseous abnormality. Impression: No radiographic evidence of acute cardiopulmonary disease.
--- NOTE | 2020-03-22 16:59 | Diagnostic Imaging Report ---
Indication: Pain status post injury Technique: 3 views of the right knee Comparison: 03/10/2020 Findings: Right total knee arthroplasty is noted in place. No acute fracture or dislocation is identified. There is a joint effusion and soft tissue swelling. Impression: Suprapatellar joint effusion and soft tissue swelling. Total knee arthroplasty. No acute fracture.
--- NOTE | 2020-03-23 12:34 | Diagnostic Imaging Report ---
EXAM: US Duplex Right Lower Extremity Arteries CLINICAL HISTORY: PAIN TECHNIQUE: Real-time duplex ultrasound scan of the right lower extremity arteries integrating B-mode two-dimensional vascular structure, Doppler spectral analysis and color flow Doppler imaging. COMPARISON: No relevant prior studies available. FINDINGS: Right common femoral artery: No occlusion or significant stenosis on color flow and spectral Doppler imaging. No abnormal increased peak systolic velocities. Normal multiphasic waveform. Right superficial femoral artery: No occlusion or significant stenosis on color flow and spectral Doppler imaging. No abnormal increased peak systolic velocities. Normal multiphasic waveform. Right popliteal artery: No occlusion or significant stenosis on color flow and spectral Doppler imaging. No abnormal increased peak systolic velocities. Normal multiphasic waveform. Right calf/foot arteries: No occlusion or significant stenosis on color flow and spectral Doppler imaging. No abnormal increased peak systolic velocities. Normal multiphasic waveform. Soft tissues: Unremarkable. IMPRESSION: Normal right lower extremity duplex arterial ultrasound.
== END 2020-03-21 18:20 | disposition home or self-care (01) ==
LOC: EMR 14:22
DX: L76.22 Postprocedural hemorrhage of skin and subcutaneous tissue following other procedure (principal); R60.9 Edema, unspecified; Z96.651 Presence of right artificial knee joint
CPT/HCPCS: 36415; 71045; 73562; 73701; 80053; 81003; 82550; 83605; 84484; 85025; 85610; 85730; 93005; 93926; 93971; 96372; 99284; J1885; Q9965